=== PATIENT | male | born 1950 | race Caucasian/White ===

== ENCOUNTER 2018-10-14 09:15 | Inpatient (IN) | payer MEDICARE, OTHER ==
[2018-10-14 10:36] LABS: ADD MAN DIFF? NO
[2018-10-14] MEDS: SOD CHLORIDE 0.9% 1,000 ML IV (10:36)
[2018-10-14] MEDS: HYDROmorphONE 1 MG/ML SYG IV ×3 (10:37→18:30)
[2018-10-14] MEDS: ONDANSETRON 4 MG INJ IV ×2 (10:37→13:00)
[2018-10-14 10:44] LABS: ABNORMAL IP MESSAGE 1; BASOPHILS % 0.3 % (0.0-2.0); EOSINOPHILS # 0.1 10^3/ul (0.0-0.5); EOSINOPHILS % 0.6 % (0.0-7.0); HEMATOCRIT 31.7 % (42.0-52.0); HEMOGLOBIN 10.2 g/dl (14.0-18.0); LYMPHOCYTES # 0.5 10^3/ul (0.8-2.9); LYMPHOCYTES % 4.4 % (15.0-51.0); MEAN CORPUSCULAR HEMOGLOBIN 27.4 pg (29.0-33.0); MEAN CORPUSCULAR HGB CONC 32.2 g/dl (32.0-37.0); MEAN CORPUSCULAR VOLUME 85.2 fl (82.0-101.0); MONOCYTE # 0.7 10^3/ul (0.3-0.9); MONOCYTES % 6.7 % (0.0-11.0); NEUTROPHILS % 87.6 % (39.0-77.0); PLATELET COUNT 384 10^3/UL (140-415); RED BLOOD COUNT 3.72 10^6/ul (4.70-6.10); RETICULOCYTE COUNT # 0.023 X10^6 (0.020-0.110); RETICULOCYTE COUNT % 0.6 % (0.5-1.5); RETICULOCYTE RBC 3.72
[2018-10-14 10:44] LABS: WHITE BLOOD COUNT 10.3 10^3/ul (4.8-10.8)
[2018-10-14 11:04] LABS: ALANINE AMINOTRANSFERASE 12 IU/L (13-69); ALBUMIN/GLOBULIN RATIO 1.14; ALKALINE PHOSPHATASE 226 IU/L (42-121); ANION GAP 11 (5-13); ASPARTATE AMINO TRANSFERASE 40 IU/L (15-46); BILIRUBIN,INDIRECT 0.2 mg/dl (0-1.1); BILIRUBIN,TOTAL 0.2 mg/dl (0.2-1.3); BLOOD UREA NITROGEN 11 mg/dl (7-20); CARBON DIOXIDE 28 mmol/L (21-31); CHLORIDE 98 mmol/L (97-110); CREATININE 0.76 mg/dl (0.61-1.24); Estimated GFR > 60 mL/min (>60); GLUCOSE 167 mg/dl (70-220); IRON 21 ug/dl (35-150); LACTATE DEHYDROGENASE 556 IU/L (313-618); POTASSIUM 4.5 mmol/L (3.5-5.1); SODIUM 137 mmol/L (135-144); TOTAL PROTEIN 7.5 g/dl (6.1-8.1)
[2018-10-14 11:13] LABS: % IRON SATURATION 7 % SAT (22-52); TOTAL IRON BINDING CAPACITY 283 ug/dl (241-421)
[2018-10-14 11:33] LABS: INR 1.11; PROTIME 14.4 Sec (11.9-14.9); PT RATIO 1.1
[2018-10-14 11:34] LABS: PARTIAL THROMBOPLASTIN TIME 38.4 Sec (23.0-35.0)
[2018-10-14] MEDS ORDERED: ONDANSETRON 4 MG INJ IV (14:30)
[2018-10-14] MEDS ORDERED: ACETAMINOPHEN 325 MG TAB PO (14:30)
[2018-10-14] MEDS: HYDROmorphONE 2 MG/ML SYG IV (17:15)
[2018-10-14] MEDS ORDERED: NACL 0.9% 3 ML SYG IV (17:30)
[2018-10-14] MEDS: ACETAMINOPHEN 325 MG TAB PO (18:24)
[2018-10-14] MEDS: TAMSULOSIN (SR) 0.4 MG CAP PO (20:40)
[2018-10-14] MEDS: morphine (ER) 30 MG TAB PO (20:40)
[2018-10-15] MEDS: HYDROmorphONE 1 MG/ML SYG IV ×2 (00:42→21:17)
[2018-10-15] MEDS: ONDANSETRON 4 MG INJ IV ×2 (00:44→21:00)
[2018-10-15] MEDS: MAGNESIUM HYDROXIDE 30ML CUP PO ×2 (02:04→13:27)
[2018-10-15] MEDS: OXYCODONE/ACETAMINOPHEN (10/325) TAB PO (05:30)
[2018-10-15 07:38] LABS: ADD MAN DIFF? NO
[2018-10-15 07:48] LABS: BASOPHILS % 0.5 % (0.0-2.0); EOSINOPHILS # 0.2 10^3/ul (0.0-0.5); EOSINOPHILS % 2.6 % (0.0-7.0); LYMPHOCYTES # 0.9 10^3/ul (0.8-2.9); LYMPHOCYTES % 10.6 % (15.0-51.0); MEAN CORPUSCULAR HEMOGLOBIN 27.1 pg (29.0-33.0); MEAN CORPUSCULAR HGB CONC 32.1 g/dl (32.0-37.0); MEAN CORPUSCULAR VOLUME 84.3 fl (82.0-101.0); MEAN PLATELET VOLUME 9.3 fl (7.4-10.4); MONOCYTE # 1.1 10^3/ul (0.3-0.9); MONOCYTES % 12.1 % (0.0-11.0); NEUTROPHIL # 6.6 10^3/ul (1.6-7.5); NEUTROPHILS % 73.9 % (39.0-77.0); PLATELET COUNT 368 10^3/UL (140-415); RED BLOOD COUNT 3.32 10^6/ul (4.70-6.10); RED CELL DISTRIBUTION WIDTH 16.1 % (11.5-14.5)
[2018-10-15 07:48] LABS: WHITE BLOOD COUNT 8.9 10^3/ul (4.8-10.8)
[2018-10-15 08:03] LABS: ANION GAP 10 (5-13); BLOOD UREA NITROGEN 9 mg/dl (7-20); CALCIUM 9.3 mg/dl (8.4-10.2); CARBON DIOXIDE 30 mmol/L (21-31); CHLORIDE 93 mmol/L (97-110); CREATININE 0.66 mg/dl (0.61-1.24); Estimated GFR > 60 mL/min (>60); GLUCOSE 107 mg/dl (70-220); MAGNESIUM 1.9 mg/dl (1.7-2.5); POTASSIUM 4.3 mmol/L (3.5-5.1); SODIUM 133 mmol/L (135-144)
[2018-10-15] MEDS: ENOXAPARIN 40 MG/0.4 ML SYG SC (09:20)
[2018-10-15] MEDS: morphine (ER) 30 MG TAB PO ×3 (09:21→21:00)
[2018-10-15 14:32] LABS: TRANSFERRIN 190 mg/dL (188-341)
[2018-10-15] MEDS ORDERED: HYDROmorphONE 0.2 MG/ML PCA IV (18:00)
[2018-10-15] MEDS: DEXAMETHASONE 10 MG/ML 1 ML INJ IV ×2 (18:00→23:26)
[2018-10-15] MEDS: ACETAMINOPHEN 1000MG/100ML IV 100 ML IVPB ×2 (19:03→23:34)
[2018-10-15] MEDS: morphine (ER) 15 MG TAB PO (21:00)
[2018-10-15] MEDS: TAMSULOSIN (SR) 0.4 MG CAP PO (23:15)
[2018-10-16] MEDS: ZOLEDRONIC ACID 4 MG in SOD CHLORIDE 0.9% 100 ML IVPB (01:14)
[2018-10-16] MEDS: DEXAMETHASONE 10 MG/ML 1 ML INJ IV ×3 (05:35→17:24)
[2018-10-16] MEDS: ACETAMINOPHEN 1000MG/100ML IV 100 ML IVPB ×2 (05:35→13:57)
[2018-10-16] MEDS: morphine (ER) 30 MG TAB PO ×3 (09:05→20:58)
[2018-10-16] MEDS: ONDANSETRON 4 MG INJ IV (09:06)
[2018-10-16] MEDS: ENOXAPARIN 40 MG/0.4 ML SYG SC (09:06)
[2018-10-16] MEDS: TAMSULOSIN (SR) 0.4 MG CAP PO (20:58)
[2018-10-17] MEDS: DEXAMETHASONE 10 MG/ML 1 ML INJ IV ×5 (00:05→23:51)
[2018-10-17] MEDS: ZOLPIDEM 5 MG TAB PO (00:05)
[2018-10-17] MEDS: MAGNESIUM HYDROXIDE 30ML CUP PO ×2 (00:13→20:21)
[2018-10-17 06:35] LABS: ANION GAP 9 (5-13); BLOOD UREA NITROGEN 16 mg/dl (7-20); CALCIUM 8.5 mg/dl (8.4-10.2); CARBON DIOXIDE 30 mmol/L (21-31); CHLORIDE 94 mmol/L (97-110); CREATININE 0.57 mg/dl (0.61-1.24); Estimated GFR > 60 mL/min (>60); GLUCOSE 151 mg/dl (70-220); MAGNESIUM 2.7 mg/dl (1.7-2.5); PHOSPHORUS 3.2 mg/dl (2.5-4.9); POTASSIUM 4.5 mmol/L (3.5-5.1); SODIUM 133 mmol/L (135-144)
[2018-10-17] MEDS: morphine (ER) 30 MG TAB PO ×3 (09:44→20:21)
[2018-10-17] MEDS: ENOXAPARIN 40 MG/0.4 ML SYG SC (09:45)
[2018-10-17] MEDS ORDERED: OXYCODONE/ACETAMINOPHEN (5/325) TAB PO (13:30)
[2018-10-17] MEDS ORDERED: HYDROmorphONE 1 MG/ML SYG IV (13:30)
[2018-10-17] MEDS: TAMSULOSIN (SR) 0.4 MG CAP PO (20:21)
[2018-10-18] MEDS: DEXAMETHASONE 10 MG/ML 1 ML INJ IV ×3 (05:36→18:06)
[2018-10-18] MEDS: morphine (ER) 30 MG TAB PO ×3 (08:39→20:31)
[2018-10-18] MEDS: ENOXAPARIN 40 MG/0.4 ML SYG SC (08:40)
[2018-10-18] MEDS: MAGNESIUM HYDROXIDE 30ML CUP PO (16:34)
[2018-10-18] MEDS: TAMSULOSIN (SR) 0.4 MG CAP PO (20:31)
[2018-10-19] MEDS: DEXAMETHASONE 10 MG/ML 1 ML INJ IV ×3 (01:19→12:44)
[2018-10-19] MEDS: MAGNESIUM HYDROXIDE 30ML CUP PO (09:30)
[2018-10-19] MEDS: morphine (ER) 30 MG TAB PO ×2 (09:30→12:44)
[2018-10-19] MEDS: ENOXAPARIN 40 MG/0.4 ML SYG SC (09:31)
== END 2018-10-19 14:32 | disposition home or self-care (01) | DRG 948 ==
LOC: E/R 09:15 → PP2 14:21
DX: G89.3 Neoplasm related pain (acute) (chronic) (principal); C79.51 Secondary malignant neoplasm of bone; E46 Unspecified protein-calorie malnutrition; C61 Malignant neoplasm of prostate; Z68.25 Body mass index [BMI] 25.0-25.9, adult; R11.2 Nausea with vomiting, unspecified; T40.605A Adverse effect of unspecified narcotics, initial encounter
CPT/HCPCS: 71045; 80048; 80053; 82728; 83540; 83615; 83735; 84100; 84466; 85025; 85045; 85610; 85730; 86850; 86900; 86901; 93005; 97110; 97116; 97163; 97530; G0378